=== PATIENT | male | born 1935 | race Caucasian/White ===

== ENCOUNTER 2020-03-05 18:29 | Emergency (ER) | payer MEDICARE, OTHER ==
[~2020-03-05 18:29] MED LIST: 3IN1 COMMODE XX; ACETAMINOPHEN325 MG PO; AMIODARONE HCL200 M1 PO; ASPIRIN CHEWABL81 MG PO; AVAPRO75 MG PO; AZITHROMYCIN250 MG PO; CARTIA XT120 MG PO; COUMADIN2 MG PO; DOXYCYCLINE HY100 MG PO; DULERA 200 MCG8.8 GM INH; DUONEB 2.5-0.5M1 AMP INH; ELIQUIS2.5 MG PO; FLEXERIL10 MG PO; GLUCOTROL XL5 MG PO; HCTZ12.5 MG PO; HYDRALAZINE HCL25 MG PO; KEFLEX250 MG PO; KETOROLAC TROME10 MG PO; LACTINEX1 EACH PO; LIPITOR40 MG PO; LOPRESSOR25 MG PO; LOPRESSOR50 MG PO; MEDROL 4MG DOSEP4 MG PO; METFORMIN HCL500 MG PO; MICON-GUARD 2% TOP; MOBIC7.5 MG PO; NITROQUIK SL0.4 MG SL; NYSTATIN SUSP1 ML/ML SSW; PREDNISONE5 MG PO; PROAMATINE5 MG PO; SINGULAIR10 MG PO; TOPROL XL 25MG25 MG PO; TOPROL XL 50 MG50 MG PO; TYLENOL PM EX-1 EACH PO; VIBRAMYCIN100 MG PO
[2020-03-05 20:25] LABS: BASOPHIL 0.8 % (0-2); EOSINOPHIL 2.7 % (0-7); HCT 38.3 % (42.0-52.0); HGB 12.7 g/dl (13.2-18.0); LYMPHOCYTE 17.8 % (15-48); MCH 32.3 pg (25.0-31.0); MCHC 33.2 g/dL (32.0-36.0); MCV 97.5 fL (78.0-100.0); MONOCYTE 8.6 % (0-12); MPV 9.3 fL (6.0-9.5); NEUTROPHIL 69.7 % (41-80); NRBC 0; PLT 186 K/uL (150-400); RBC 3.93 M/uL (4.70-6.00); RDW 12.9 % (11.5-14.0); WBC 8.5 K/uL (4.0-10.5)
[2020-03-05 20:35] LABS: INR 1.15 (0.9-1.2)
[2020-03-05 20:36] LABS: PTT 35.5 SECONDS (22.2-34.7)
[2020-03-05 20:44] LABS: ALBUMIN 3.5 g/dL (3.4-5.0); BUN/CREAT RATIO (CALC) 15.3 RATIO; CREATININE 1.31 mg/dL (0.67-1.17); GLOBULIN (CALCULATION) 3.4 g/dL; MAGNESIUM 2.2 mg/dL (1.8-2.4); POTASSIUM 4.2 mmol/L (3.5-5.1); TOTAL PROTEIN 6.9 g/dL (6.4-8.2)
[2020-03-05 20:51] LABS: PRO-BNP 726 pg/mL (<450)
== END 2020-03-05 23:25 | disposition home or self-care (01) ==
LOC: FER 18:29
PROVIDERS: Emergency Medicine
DX: K80.80 Other cholelithiasis without obstruction (principal); R07.89 Other chest pain; I44.7 Left bundle-branch block, unspecified; I50.9 Heart failure, unspecified; Z95.5 Presence of coronary angioplasty implant and graft; Z95.1 Presence of aortocoronary bypass graft; Z98.890 Other specified postprocedural states; Z91.018 Allergy to other foods
CPT/HCPCS: 36415; 71275; 80053; 83690; 83735; 83880; 84145; 84484; 85025; 85379; 85610; 85730; 93005; J7030; Q9967

== ENCOUNTER 2020-07-15 19:50 | Emergency (ER) | payer MEDICARE, OTHER ==
[2020-07-15 21:55] LABS: EOSINOPHIL 3.6 % (0-7); HCT 37.4 % (42.0-52.0); HGB 12.7 g/dl (13.2-18.0); LYMPHOCYTE 20.4 % (15-48); MCH 32.8 pg (25.0-31.0); MCV 96.6 fL (78.0-100.0); MONOCYTE 11.1 % (0-12); MPV 9.4 fL (6.0-9.5); NEUTROPHIL 62.8 % (41-80); NRBC 0; PLT 185 K/uL (150-400); RBC 3.87 M/uL (4.70-6.00); RDW 14.3 % (11.5-14.0); WBC 7.9 K/uL (4.0-10.5)
[2020-07-15 22:11] LABS: INR 1.12 (0.9-1.2); PROTHROMBIN TIME 13.7 SECONDS (11.4-13.6)
[2020-07-15 22:12] LABS: D-DIMER 3.12 ug/mLFEU (0.00-0.41)
[2020-07-15 22:15] LABS: ALBUMIN 3.5 g/dL (3.4-5.0); BUN/CREAT RATIO (CALC) 15.6 RATIO; CREATININE 1.41 mg/dL (0.67-1.17); GLOBULIN (CALCULATION) 3.5 g/dL; POTASSIUM 4.2 mmol/L (3.5-5.1)
[2020-07-15 22:23] LABS: PRO-BNP 428 pg/mL (<450)
== END 2020-07-16 | disposition home or self-care (01) ==
LOC: FER 19:50
PROVIDERS: Emergency Medicine
DX: J44.1 Chronic obstructive pulmonary disease with (acute) exacerbation (principal); I10 Essential (primary) hypertension; Z86.73 Personal history of transient ischemic attack (TIA), and cerebral infarction without residual deficits; Z95.1 Presence of aortocoronary bypass graft; Z95.0 Presence of cardiac pacemaker; Z79.01 Long term (current) use of anticoagulants; Z87.891 Personal history of nicotine dependence; Z79.82 Long term (current) use of aspirin; Z79.899 Other long term (current) drug therapy
CPT/HCPCS: 36415; 71045; 80053; 83880; 84484; 85025; 85379; 85610; 93005; 94640; 94664; J2930

== ENCOUNTER 2020-10-21 11:50 | Emergency (ER) | payer MEDICARE, OTHER ==
[~2020-10-21] VITALS: Ht 162.6 cm; Wt 75.3 kg
== END 2020-10-21 17:44 | disposition home or self-care (01) ==
LOC: FER 11:50
DX: U07.1 COVID-19 (principal); F03.90 Unspecified dementia, unspecified severity, without behavioral disturbance, psychotic disturbance, mood disturbance, and anxiety; E11.9 Type 2 diabetes mellitus without complications; I10 Essential (primary) hypertension; J44.9 Chronic obstructive pulmonary disease, unspecified; Z95.0 Presence of cardiac pacemaker; Z23 Encounter for immunization
CPT/HCPCS: M0243; Q0244

== ENCOUNTER 2020-12-08 11:33 | Emergency (ER) | payer MEDICARE, OTHER ==
[2020-12-08 12:20] LABS: BASOPHIL 0.7 % (0-2); EOSINOPHIL 4.3 % (0-7); HCT 38.4 % (42.0-52.0); HGB 12.7 g/dl (13.2-18.0); MCH 31.3 pg (25.0-31.0); MCHC 33.1 g/dL (32.0-36.0); MCV 94.6 fL (78.0-100.0); MONOCYTE 9.5 % (0-12); MPV 9.5 fL (6.0-9.5); NEUTROPHIL 70.8 % (41-80); NRBC 0; PLT 201 K/uL (150-400); RBC 4.06 M/uL (4.70-6.00); RDW 13.8 % (11.5-14.0); WBC 8.4 K/uL (4.0-10.5)
[2020-12-08 12:34] LABS: ALBUMIN 3.4 g/dL (3.4-5.0); BILIRUBIN - TOTAL 1.5 mg/dL (0.2-1.0); BUN/CREAT RATIO (CALC) 12.4 RATIO; CREATININE 1.05 mg/dL (0.67-1.17); GLOBULIN (CALCULATION) 3.8 g/dL; POTASSIUM 3.7 mmol/L (3.5-5.1); TOTAL PROTEIN 7.2 g/dL (6.4-8.2)
[2020-12-08 13:36] LABS: CORONAVIRUS 2019 SARS-COV-2 NEGATIVE (NEGATIVE); INFLUENZA A NAA NEGATIVE (NEGATIVE)
[2020-12-08] MEDS ORDERED: PREDNISONE 20MG20 MG PO (13:41)
[2020-12-08] MEDS ORDERED: BUMEX1 MG PO (13:41)
[2020-12-08] MEDS ORDERED: VIBRAMYCIN100 MG PO (13:43)
== END 2020-12-08 15:10 | disposition home or self-care (01) ==
LOC: FER 11:33
PROVIDERS: Internal Medicine
DX: J44.1 Chronic obstructive pulmonary disease with (acute) exacerbation (principal); I10 Essential (primary) hypertension; R79.89 Other specified abnormal findings of blood chemistry; I48.91 Unspecified atrial fibrillation; F02.80 Dementia in other diseases classified elsewhere, unspecified severity, without behavioral disturbance, psychotic disturbance, mood disturbance, and anxiety; Z86.73 Personal history of transient ischemic attack (TIA), and cerebral infarction without residual deficits; Z88.6 Allergy status to analgesic agent; Z91.018 Allergy to other foods; Z86.16 Personal history of COVID-19; Z20.822 Contact with and (suspected) exposure to COVID-19
CPT/HCPCS: 36415; 71250; 80053; 83880; 84145; 84484; 85025; 93005; 94664; J1100; J3490; U0002

== ENCOUNTER 2021-05-04 07:52 | Inpatient (IN) | payer MEDICARE, OTHER ==
[~2021-05-04] VITALS: Ht 162.6 cm; Wt 66.7 kg
[~2021-05-04 07:52] MED LIST changes: +BUMEX1 MG PO; +PREDNISONE 20MG20 MG PO
[2021-05-04 08:55] LABS: BASOPHIL 0.9 % (0-2); EOSINOPHIL 2.3 % (0-7); HCT 33.9 % (42.0-52.0); HGB 10.9 g/dl (13.2-18.0); LYMPHOCYTE 10.3 % (15-48); MCHC 32.2 g/dL (32.0-36.0); MCV 96.3 fL (78.0-100.0); MONOCYTE 10.1 % (0-12); MPV 10.4 fL (6.0-9.5); NEUTROPHIL 75.8 % (41-80); NRBC 0; PLT 152 K/uL (150-400); RBC 3.52 M/uL (4.70-6.00); RDW 14.2 % (11.5-14.0); WBC 8.2 K/uL (4.0-10.5)
[2021-05-04 09:04] LABS: INR 1.48 (0.9-1.2); PROTHROMBIN TIME 17.2 SECONDS (11.8-13.4)
[2021-05-04 09:05] LABS: PTT 38.3 SECONDS (24.4-34.7)
[2021-05-04 09:16] LABS: ALBUMIN 2.9 g/dL (3.4-5.0); BILIRUBIN - TOTAL 1.9 mg/dL (0.2-1.0); BUN/CREAT RATIO (CALC) 12.5 RATIO; CREATININE 1.12 mg/dL (0.67-1.17); GLOBULIN (CALCULATION) 3.8 g/dL; MAGNESIUM 1.8 mg/dL (1.8-2.4); TOTAL PROTEIN 6.7 g/dL (6.4-8.2)
[2021-05-04 09:30] LABS: CORONAVIRUS 2019 SARS-COV-2 NEGATIVE (NEGATIVE); INFLUENZA A NAA NEGATIVE (NEGATIVE)
[2021-05-04 10:05] LABS: LACTIC ACID 1.3 mmol/L (0.4-1.9)
[2021-05-04] MEDS ORDERED: BROVANA15 MCG/2 M NEB (15:39)
[2021-05-04] MEDS ORDERED: PULMICORT0.5 MG/2 M NEB (15:41)
[2021-05-04] MEDS ORDERED: TYLENOL PM EX-1 EACH PO (15:54)
[2021-05-04 18:11] LABS: CHOLESTEROL 71 mg/dL (<200); HDL 33 mg/dL (40-60); LDL - DIRECT 31 mg/dL (<100); TRIGLYCERIDES 70 mg/dL (<150)
[2021-05-05 06:05] LABS: BASOPHIL 0.1 % (0-2); EOSINOPHIL 0 % (0-7); HCT 32.7 % (42.0-52.0); LYMPHOCYTE 5.4 % (15-48); MCH 31.3 pg (25.0-31.0); MCHC 33.6 g/dL (32.0-36.0); MCV 93.2 fL (78.0-100.0); MONOCYTE 7.7 % (0-12); MPV 10.8 fL (6.0-9.5); NRBC 0; PLT 173 K/uL (150-400); RBC 3.51 M/uL (4.70-6.00); RDW 13.8 % (11.5-14.0); WBC 8.3 K/uL (4.0-10.5)
[2021-05-05 06:28] LABS: BILIRUBIN - TOTAL 1.5 mg/dL (0.2-1.0); CREATININE 1.05 mg/dL (0.67-1.17); POTASSIUM 3.9 mmol/L (3.5-5.1)
[2021-05-06 06:13] LABS: BASOPHIL 0.4 % (0-2); EOSINOPHIL 1.6 % (0-7); HCT 33.6 % (42.0-52.0); HGB 10.9 g/dl (13.2-18.0); MCH 30.5 pg (25.0-31.0); MCHC 32.4 g/dL (32.0-36.0); MCV 94.1 fL (78.0-100.0); MONOCYTE 7.1 % (0-12); MPV 10.2 fL (6.0-9.5); PLT 192 K/uL (150-400); RBC 3.57 M/uL (4.70-6.00); WBC 9.6 K/uL (4.0-10.5)
[2021-05-06 06:27] LABS: BUN/CREAT RATIO (CALC) 20.6 RATIO; CREATININE 1.26 mg/dL (0.67-1.17); MAGNESIUM 1.9 mg/dL (1.8-2.4); POTASSIUM 3.5 mmol/L (3.5-5.1)
[2021-05-06 06:58] LABS: BAND 1 % (0-10); EOSINOPHIL(M) 2 % (0-7); LYMPHOCYTE(M) 6 % (15-48); MONOCYTE(M) 3 % (0-12); NEUTROPHILS(M) 88 % (41-80); PLATELET ESTIMATE NORMAL; PLATELET MORPHOLOGY NORMAL; TOTAL CELL COUNT 100
--- NOTE | 2021-05-06 14:13 | NUR ---
05/06/21 This director social welfare met w Mr. Burr and his daughter, Rhonda Camacho, at bedside. Mr. Burr resides at [facility]. They intend on him returning. James at [facility], [phone], will accept back. - Patient is current with [facility] . [facility] was notified of admission and planned discahrge for 05/06 or 05/07.
--- NOTE | 2021-05-06 15:01 | NUR ---
CONTACTED [facility]. TALKED WITH WAYNE AND SHE WILL CONTACT A LOCAL REP TO COME TO FACILITY TO COMPLETE SERVICE
--- NOTE | 2021-05-06 19:40 | NUR ---
@1830 PATIENT C/O SOA, V/S TAKEN BP 156/78, 96, RESP 18, LUNGS WHEZZING THOMAS PT HAS 02 @3 LITERS, SATS 99%. DR. DALTON INFORMED. EKG ORDERED, BREATHING TX GIVEN. NITRO X1 GIVEN AT 1854. 1859 NO C/O PAIN.
[2021-05-07 06:09] LABS: HGB 11.5 g/dl (13.2-18.0); MCH 31.3 pg (25.0-31.0); MCHC 32.9 g/dL (32.0-36.0); MCV 95.4 fL (78.0-100.0); MPV 10.4 fL (6.0-9.5); RBC 3.67 M/uL (4.70-6.00); WBC 7.8 K/uL (4.0-10.5)
[2021-05-07 06:30] LABS: CREATININE 1.28 mg/dL (0.67-1.17); MAGNESIUM 1.9 mg/dL (1.8-2.4); POTASSIUM 4.7 mmol/L (3.5-5.1)
[2021-05-08 06:31] LABS: BASOPHIL 0.2 % (0-2); EOSINOPHIL 0.2 % (0-7); HCT 34.4 % (42.0-52.0); MCH 30.6 pg (25.0-31.0); MCV 95.6 fL (78.0-100.0); MPV 10.3 fL (6.0-9.5); NEUTROPHIL 83.7 % (41-80); NRBC 0; PLT 210 K/uL (150-400); RDW 13.9 % (11.5-14.0); WBC 12.7 K/uL (4.0-10.5)
[2021-05-08 06:49] LABS: BUN/CREAT RATIO (CALC) 27.2 RATIO; CREATININE 1.14 mg/dL (0.67-1.17); MAGNESIUM 2.2 mg/dL (1.8-2.4); POTASSIUM 4.5 mmol/L (3.5-5.1)
--- NOTE | 2021-05-08 16:10 | NUR ---
SPOKE WITH COMPUTER HARDWARE ENGINEER ANSWERING SERVICE AT [facility] ALREADY SET UP AND THEY ARE AWARE OF D/C TODAY
[2021-05-08] MEDS ORDERED: FUROSEMIDE 20MG20 MG PO (16:27)
[2021-05-08] MEDS ORDERED: TOPROL XL 50 MG50 MG PO (16:27)
== END 2021-05-08 17:20 | disposition home health service (06) | DRG 291 ==
LOC: FER 07:52 → FMS 10:40
PROVIDERS: Emergency Medicine; Nurse Practitioner Family; ADMIT Internal Medicine
DX: I11.0 Hypertensive heart disease with heart failure (principal); I50.43 Acute on chronic combined systolic (congestive) and diastolic (congestive) heart failure; J96.01 Acute respiratory failure with hypoxia; G92.8 Other toxic encephalopathy; J44.1 Chronic obstructive pulmonary disease with (acute) exacerbation; I48.20 Chronic atrial fibrillation, unspecified; N17.9 Acute kidney failure, unspecified; Z20.822 Contact with and (suspected) exposure to COVID-19; T43.015A Adverse effect of tricyclic antidepressants, initial encounter; T38.0X5A Adverse effect of glucocorticoids and synthetic analogues, initial encounter; F03.90 Unspecified dementia, unspecified severity, without behavioral disturbance, psychotic disturbance, mood disturbance, and anxiety; E11.9 Type 2 diabetes mellitus without complications; E78.5 Hyperlipidemia, unspecified; I25.10 Atherosclerotic heart disease of native coronary artery without angina pectoris; Z95.1 Presence of aortocoronary bypass graft; Z90.49 Acquired absence of other specified parts of digestive tract; Z99.81 Dependence on supplemental oxygen; Z95.0 Presence of cardiac pacemaker; Z79.01 Long term (current) use of anticoagulants; Z86.73 Personal history of transient ischemic attack (TIA), and cerebral infarction without residual deficits; Z98.890 Other specified postprocedural states; Z88.6 Allergy status to analgesic agent; Z87.891 Personal history of nicotine dependence; Z79.82 Long term (current) use of aspirin; Z79.899 Other long term (current) drug therapy
CPT/HCPCS: 36415; 36600; 71045; 80048; 80053; 80061; 82803; 83036; 83605; 83735; 83880; 84145; 84484; 85025; 85610; 85730; 87040; 87205; 87449; 93005; 94010; 94640; 94760; 94762; 97162; 97165; 97530-GP; 97535; J0500; J1940; J2930; U0002

== ENCOUNTER 2021-10-22 15:34 | Emergency (ER) | payer MEDICARE, OTHER ==
[~2021-10-22 15:34] MED LIST changes: +BROVANA15 MCG/2 M NEB; +FEOSOL325 MG PO; +FUROSEMIDE 20MG20 MG PO; +MAG-OXIDE 400M400 MG PO; +PULMICORT0.5 MG/2 M NEB; +YUPELRI175 MCG/3 INH
== END 2021-10-22 18:55 | disposition home or self-care (01) ==
LOC: FER 15:34
DX: S32.019A Unspecified fracture of first lumbar vertebra, initial encounter for closed fracture (principal); S32.029A Unspecified fracture of second lumbar vertebra, initial encounter for closed fracture; S30.1XXA Contusion of abdominal wall, initial encounter; I25.10 Atherosclerotic heart disease of native coronary artery without angina pectoris; I10 Essential (primary) hypertension; E11.9 Type 2 diabetes mellitus without complications; J44.9 Chronic obstructive pulmonary disease, unspecified; F03.90 Unspecified dementia, unspecified severity, without behavioral disturbance, psychotic disturbance, mood disturbance, and anxiety; W19.XXXA Unspecified fall, initial encounter; Y93.89 Activity, other specified; Y92.129 Unspecified place in nursing home as the place of occurrence of the external cause
CPT/HCPCS: 70450; 71250; 72125; 72128; 72131